=== PATIENT | male | born 1945 | race Two or more races ===

== ENCOUNTER 2019-06-25 12:17 | Inpatient (IN) | payer MEDICARE, BC ==
[~2019-06-25] VITALS: Ht 170.2 cm; Wt 77.6 kg
--- NOTE | 2019-06-25 12:25 | NUR ---
PT SENT HERE FROM URGENT CARE FOR AN ABNORMAL EKG,C/O CHEST PRESSURE. PT STATES 3/10 ON THE CHEST. PT AAOX4, VSS, BREATHING EVEN AND UNLABORED ON ROOM AIR W/ NAD. PT CONNECTED TO THE MONITOR.
--- NOTE | 2019-06-25 12:25 | NUR ---
BLOOD DRAWN AND SENT TO LAB
[2019-06-25 12:45] LABS: BASOPHILS # (AUTO) 0.1 /CMM (0.0-0.2); BASOPHILS % (AUTO) 0.9 % (0.0-2.0); EOSINOPHILS % (AUTO) 1.7 % (0.0-6.0); HEMATOCRIT 52 % (39-51); HEMOGLOBIN 17.9 g/dL (13.5-17.5); LYMPHOCYTES # (AUTO) 1.5 /CMM (0.8-4.8); LYMPHOCYTES % (AUTO) 24.2 % (20.0-44.0); MEAN CORPUSCULAR HGB CONC 34 g/dl (31.0-36.0); MEAN CORPUSCULAR VOLUME 94 fL (80-96); MONOCYTES # (AUTO) 0.4 /CMM (0.1-1.30); MONOCYTES % (AUTO) 6.8 % (2.0-12.0); NEUTROPHILS # (AUTO) 4.2 /CMM (1.8-8.9); NEUTROPHILS % (AUTO) 66.4 % (43.0-81.0); PLATELET COUNT (AUTO) 143 /CMM (150-450); RED BLOOD CELL COUNT(AUTO) 5.54 MIL/uL (4.5-6.0); WHITE BLOOD COUNT (AUTO) 6.3 K/uL (4.3-11.0)
[2019-06-25 12:54] LABS: CALCIUM, SERUM 9.2 mg/dL (8.5-10.1); CARBON DIOXIDE 33 mmol/L (21-32); CHLORIDE 103 mmol/L (98-107); CREATININE 1.1 mg/dL (0.6-1.3); GLUCOSE 100 mg/dL (74-106); POTASSIUM 4.2 mmol/L (3.5-5.1); SODIUM SERUM 139 mmol/L (136-145); UREA NITROGEN, BLOOD 18 mg/dL (7-18)
--- NOTE | 2019-06-25 13:00 | NUR ---
XRAY AT BEDSIDE
--- NOTE | 2019-06-25 13:36 | NUR ---
PT ALERT AND AWAKE AT BEDSIDE. WILL CONTINUE TO MONITOR
[2019-06-25] MEDS ORDERED: LOSA1TAB39 PO (13:43)
[2019-06-25] MEDS ORDERED: METO50TA16 PO (13:43)
[2019-06-25] MEDS ORDERED: AMLO10TA7 PO (13:43)
[2019-06-25] MEDS ORDERED: ATOR20TA PO (13:43)
--- NOTE | 2019-06-25 13:55 | NUR ---
ULTRASOUND AT BEDSIDE
[2019-06-25] MEDS ORDERED: MORPHINE SULFATE INJ 2 MG/ML DISP.SYRIN IV PRN (14:00)
[2019-06-25] MEDS ORDERED: ACETAMINOPHEN 325 MG TABLET PO PRN (14:00)
[2019-06-25] MEDS ORDERED: MAGNESIUM HYDROXIDE 30 ML UDC PO PRN (14:00)
[2019-06-25] MEDS ORDERED: ONDANSETRON HCL/PF 4 MG/2 ML VIAL IVP PRN (14:00)
[2019-06-25] MEDS ORDERED: HYDROCODONE/APAP 5/325MG 1 EACH TABLET PO PRN (14:00)
[2019-06-25] MEDS ORDERED: TEMAZEPAM 15 MG CAPSULE PO PRN (14:00)
[2019-06-25] MEDS ORDERED: MAG HYDROX/AL HYDROX/SIMETH 30 ML UDC PO PRN (14:00)
[2019-06-25] MEDS ORDERED: NITROGLYCERIN 0.4 MG/TAB BOTTLE SL PRN (14:00)
--- NOTE | 2019-06-25 14:00 | NUR ---
ROOM [id number]
--- NOTE | 2019-06-25 14:04 | NUR ---
PER LENS MOLDER CALL BACK 20 MINS AFTER
[2019-06-25] MEDS ORDERED: ASPI-992 PO (14:13)
--- NOTE | 2019-06-25 14:30 | NUR ---
REPORT GIVEN TO DEE GUNN
--- NOTE | 2019-06-25 15:30 | NUR ---
CORNER FORMER NOTE RECEIVED PATIENT FROM ER WITH DX CHEST PAIN UNDER CARE DR. ZIMMER. ALERT ORIENTED X4, NO SOB, PLACED ON TELEMONITOR, SR 60, NO COMPLAIN OF CHEST PAIN OR DIZZINESS, WANTS TO GO HOME. LEFT AC HL INTACT AND FLUSHED WELL. HOSPITAL ORIENTATION DONE, VITAL SIGNS TAKEN, BELONGING CHECKED, WAITING FOR DR. ZIMMER FOR ADMISSION ORDERS.
--- NOTE | 2019-06-25 15:32 | NUR ---
VOICE WRITING REPORTER NOTES DR. ZIMMER AT BEDSIDE. SPEAK WITH THE PATIENT. PATIENT STILL WANTS TO GO. AMA. DR. ZIMMER NOTIFIED. AMA FORM SIGNED BY PATIENT.
[2019-06-25 15:34] VITALS: BP 169/100
[2019-06-25 16:00] VITALS: BP 169/100
--- NOTE | 2019-06-25 16:03 | NUR ---
CANAL SUPERINTENDENT NOTE PATIENT STILL WANTS TO GO HOME AMA. EXPLAIN CONSEQUENCES OF LEAVING AND POSSIBLE CHEST PAIN BUT STILL WANTS TO GO. 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 GRANDSON AT BEDSIDE, HL REMOVED ON LEFT AC. PRESSURE DRESSING APPLIED, NO BLEEDING NOTED. INSTRUCTED TO FOLLOW UP PRIMARY CARE DOCTOR AND RETURN FOR WORSENING SYMPTOMS. LEFT HOSPITAL IN STABLE CONDITION WITH [facility] WALKING IN THE HALLWAY. EDUCATIONAL INSTRUCTIONS GIVEN TO THE PATIENT
[2019-06-26] MEDS ORDERED: ASPIRIN 81 MG TAB.CHEW PO SCH (09:00)
== END 2019-06-25 16:03 | disposition left against medical advice (07) | DRG 303 ==
LOC: ER 12:20 → TELE1 14:08
DX: I25.10 Atherosclerotic heart disease of native coronary artery without angina pectoris (principal); E78.5 Hyperlipidemia, unspecified; I10 Essential (primary) hypertension; I25.2 Old myocardial infarction; Z95.5 Presence of coronary angioplasty implant and graft
CPT/HCPCS: 36415; 71045-TC; 80048-TC; 84484-TC; 85025-TC; 87081-TC; 93307-TC; G0378

== ENCOUNTER 2024-04-02 02:33 | Emergency (ER) | payer BC, MEDICARE ==
[~2024-04-02] VITALS: Ht 170.2 cm; Wt 72.6 kg
[~2024-04-02 02:33] MED LIST: AMLO-213 PO; ASPI-992 PO; ATOR20TA PO; LOSA1TAB39 PO; METO50TA16 PO
[2024-04-02 02:35] VITALS: TEMP 97.4
[2024-04-02 03:15] LABS: BASOPHILS % (AUTO) 0.3 % (0.0-2.0); EOSINOPHILS # (AUTO) 0.1 K/uL (0.0-0.7); EOSINOPHILS % (AUTO) 0.5 % (0.0-6.0); HEMATOCRIT 49 % (39-51); LYMPHOCYTES # (AUTO) 2.5 K/uL (0.8-4.8); LYMPHOCYTES % (AUTO) 20.5 % (20.0-44.0); MEAN CORPUSCULAR HEMOGLOBIN 32 PG (26.0-33.0); MEAN CORPUSCULAR HGB CONC 35 g/dl (31.0-36.0); MEAN CORPUSCULAR VOLUME 91 fL (80-96); MONOCYTES # (AUTO) 0.6 K/uL (0.1-1.30); MONOCYTES % (AUTO) 4.7 % (2.0-12.0); NEUTROPHILS # (AUTO) 8.8 K/uL (1.8-8.9); PLATELET COUNT (AUTO) 192 K/uL (150-450); RED BLOOD CELL COUNT(AUTO) 5.37 MIL/uL (4.5-6.0); RED CELL DISTRIBUTION WIDTH 13.3 % (11.5-15.0); WHITE BLOOD COUNT (AUTO) 11.9 K/uL (4.3-11.0)
[2024-04-02] MEDS ORDERED: FAMOTIDINE/PF INJ 20 MG/2 ML VIAL IV ONE (03:29)
[2024-04-02] MEDS: FAMOTIDINE/PF INJ 20 MG/2 ML VIAL IV ONE (03:30)
[2024-04-02 03:43] LABS: CALCIUM, SERUM 9.2 mg/dL (8.5-10.1); CARBON DIOXIDE 31 mmol/L (21-32); CHLORIDE 95 mmol/L (98-107); CREATININE 1.1 mg/dL (0.6-1.3); GLUCOSE 152 mg/dL (74-106); POTASSIUM 3.3 mmol/L (3.5-5.1); SODIUM SERUM 133 mmol/L (136-145); UREA NITROGEN, BLOOD 19 mg/dL (7-18)
[2024-04-02 03:56] LABS: ALANINE AMINOTRANSFERASE 32 U/L (12-78); ALBUMIN 3.6 g/dL (3.4-5.0); ALKALINE PHOSPHATASE 66 U/L (46-116); ASPARTATE AMINOTRANSFERASE 18 U/L (15-37); BILIRUBIN,DIRECT 0.3 mg/dL (0.0-0.2); BILIRUBIN,TOTAL 1.6 mg/dL (0.2-1.0); NT-PRO BNP 239 pg/mL (0-125); TOTAL PROTEIN, SERUM 6.9 g/dL (6.4-8.2)
[2024-04-02 05:11] VITALS: BP 150/93; O2SAT 97
== END 2024-04-02 06:08 | disposition left against medical advice (07) ==
LOC: ER 02:41
DX: R07.9 Chest pain, unspecified (principal); R06.02 Shortness of breath; R42 Dizziness and giddiness; I10 Essential (primary) hypertension; I25.10 Atherosclerotic heart disease of native coronary artery without angina pectoris; I25.2 Old myocardial infarction; K21.9 Gastro-esophageal reflux disease without esophagitis; E78.5 Hyperlipidemia, unspecified; Z60.2 Problems related to living alone
CPT/HCPCS: 99285; 96374; 71045; 93005; 85025; 80048; 83690; 80076; 36415; 84484; 83880; J3490